=== PATIENT | male | born 1960 | race Hispanic/Latino ===

== ENCOUNTER 2022-04-15 05:40 | Emergency (ER) | payer OTHER ==
[2022-04-15 06:30] LABS: Bilirubin Moderate (Negative); Blood, Urine Trace (Negative); Clarity Clear (Clear); Glucose, Urine (Dipstick) Negative (Negative); Ketone, Urine 15 mg/dL (Negative); Leukocyte Negative (Negative); Nitrite Negative (Negative); Protein, Urine (Dipstick) > or equal to 300 mg/dL (Neg-Trace)
[2022-04-15 06:44] LABS: ALT (SGPT) 6 U/L (8-55); AST (SGOT) 13 U/L (5-34); Albumin 3.5 g/dL (3.5-5.0); Alkaline Phosphatase 71 U/L (40-110); Anion Gap 17 mmol/L (10-20); BUN (Urea Nitrogen) 22 mg/dL (8.4-25.7); Bilirubin, Total 0.3 mg/dL (0.2-1.2); Calc. Creatinine Clearance 0 mL/min (70-130); Calcium 9.1 mg/dL (7.8-10.44); Carbon Dioxide 22 mmol/L (22-29); Chloride 101 mmol/L (98-107); Estimated GFR 102; Globulin 4.9 g/dL (2.4-3.5); Glucose 146 mg/dL (70-105); Lipase 15 U/L (8-78); Potassium 4.7 mmol/L (3.5-5.1); Protein, Total 8.4 g/dL (6.0-8.3); Sodium 135 mmol/L (136-145)
[2022-04-15 06:52] LABS: #Basophils 0.1 thou/uL (0.0-0.2); #Lymphocytes 0.8 thou/uL (1.20-3.40); #Monocytes 0.5 thou/uL (0.11-0.59); #Neutrophils 6.2 thou/uL (1.40-6.50); %Basophils 0.7 % (0.0-1.0); %Lymphocytes 10.8 % (21.0-51.0); %Monocytes 6.1 % (0.0-10.0); %Neutrophils 82.3 % (42.0-75.0); Hemoglobin 10.8 g/dL (14.0-18.0); Mean Corpuscular HGB CONC 31.4 g/dL (32.0-36.0); Mean Corpuscular Hemoglobin 27.5 pg (27.0-31.0); Mean Corpuscular Volume 87.6 fl (78.0-98.0); Mean Platelet Volume 6.4 fL (7.4-10.4); Platelet Count 70 10x3/uL (130-400); RBC Distribution Width 15.9 % (11.5-14.5); Red Blood Cell (RBC) Count 3.91 mill/uL (4.70-6.10); White Blood Cell (WBC) Count 7.5 10x3/uL (4.8-10.8)
[2022-04-15 06:58] LABS: Bacteria/HPF Rare-Few HPF (None Seen); RBC/HPF 0-3 HPF (0-3); Squamous Epithelial None Seen HPF (0-3); WBC/HPF None Seen HPF (0-3)
[2022-04-15] MEDS ORDERED: Morphine 4 MG/ML VIAL ONE ×2 (07:58→13:53)
[2022-04-15] MEDS ORDERED: Ondansetron PF 4 MG/2 ML Vial ONE (07:58)
[2022-04-15] MEDS ORDERED: Iopamidol 370 76% 100 ML VIAL ONE (09:00)
[2022-04-15 09:24] LABS: SARS-CoV-2 NAA Rapid Test Not Detected (NotDetected)
[2022-04-15] MEDS ORDERED: Dextrose 5 %-0.45 % NaCl 1,000 ML ONE (09:48)
[2022-04-15] MEDS ORDERED: Sodium Chloride 0.9% 100 ML ONE (10:49)
[2022-04-15] MEDS ORDERED: Piperacillin/Tazobactam 3.375 GM VIAL ONE (10:49)
[2022-04-15 11:29] LABS: Specific Gravity, Urine 1.029 (1.002-1.036)
== END 2022-04-15 14:30 | disposition short-term general hospital (02) ==
LOC: NAV ERS 05:40
DX: K46.0 Unspecified abdominal hernia with obstruction, without gangrene (principal); D64.9 Anemia, unspecified; D69.6 Thrombocytopenia, unspecified; N32.89 Other specified disorders of bladder; Z20.822 Contact with and (suspected) exposure to COVID-19
CPT/HCPCS: 74177; 80053; 81003; 81015; 83690; 85025; 96365; 96375; 96376; J2270; J2405; J2543; J3490; J7042; Q9967; U0002